=== PATIENT | female | born 1985 | race Two or more races ===

== ENCOUNTER 2021-04-27 17:10 | Emergency (ER) | payer MEDICAID ==
[~2021-04-27] VITALS: Ht 157.5 cm; Wt 68.2 kg
[2021-04-27 17:14] VITALS: BP 134/84
== END 2021-04-27 18:19 | disposition home or self-care (01) ==
LOC: ER 17:11
DX: U07.1 COVID-19 (principal); J06.9 Acute upper respiratory infection, unspecified; R50.9 Fever, unspecified; R05 Cough; R06.02 Shortness of breath; R43.8 Other disturbances of smell and taste; Z88.0 Allergy status to penicillin
CPT/HCPCS: 87635; 99283; C9803